=== PATIENT | male | born 1965 | race African-American/Black ===

== ENCOUNTER 2024-02-23 10:14 | Emergency (ER) | payer MEDICARE ==
--- NOTE | 2024-02-23 10:41 | ED ---
Upper Extremity HPI - General Chief Complaint: Extremity Injury, Upper Stated Complaint: Left arm pain,fall Time Seen by Provider: 02/23/24 10:40 Source: patient, RN notes reviewed Mode of arrival: ambulatory Limitations: no limitations - History of Present Illness Initial Comments: This is a 58-year-old male who presents to the emergency department for a fall. Patient tripped and fell yesterday, landing on his left side. He has since had pain to the left shoulder and upper arm. Denies hitting his head. Not taking any blood thinners. MD Complaint: Injury to:: left, shoulder - Related Data Previous Rx's Medication Instructions Recorded HYDROcodone/APAP 7.5-325MG [[place] 1 tab PO Q6HR PRN 3 Days #12 tab 02/23/24 7.5-325] Ketorolac [Toradol] 10 mg PO Q6HR PRN #15 tab 02/23/24 Lidocaine 5% Patch [Lidoderm 5% 1 patch TOPICAL DAILY PRN #30 patch 02/23/24 Patch] Allergies Allergy/AdvReac Type Severity Reaction Status Date / Time No Known Allergies Allergy Verified 02/23/24 10:38 Review of Systems ROS Statement: Those systems with pertinent positive or pertinent negative responses have been documented in the HPI. ROS Other: All systems not noted in ROS Statement are negative. Past Medical History Past Medical History: No Reported History History of Any Multi-Drug Resistant Organisms: None Reported Past Surgical History: No Surgical Hx Reported Past Psychological History: No Psychological Hx Reported Smoking Status: Current every day smoker Past Alcohol Use History: None Reported Past Drug Use History: None Reported General Exam Limitations: no limitations General appearance: alert, in no apparent distress Head exam: Present: atraumatic, normocephalic, normal inspection Respiratory exam: Present: normal lung sounds bilaterally. Absent: respiratory distress, wheezes, rales, rhonchi, stridor Cardiovascular Exam: Present: regular rate, normal rhythm, normal heart sounds. Absent: systolic murmur, diastolic murmur, rubs, gallop, clicks Extremities exam: Present: other (Tenderness and swelling over the left shoulder. Range of motion limited by pain. 2+ radial pulses.) Neurological exam: Present: alert, oriented X3, CN II-XII intact Psychiatric exam: Present: normal affect, normal mood Skin exam: Present: warm, dry, intact, normal color. Absent: rash Course Vital Signs 02/23/24 02/23/24 10:34 12:39 Temperature 98 F Pulse Rate 91 89 Respiratory 18 16 Rate Blood Pressure 155/113 143/84 O2 Sat by Pulse 98 97 Oximetry Medical Decision Making - Medical Decision Making This is a 58 year old male who presents to the emergency department for left shoulder pain after a fall. Was pt. sent in by a medical professional or institution? @ -No Did you speak to anyone other than the patient for history? @ -No Did you review nursing and triage notes? @ -Yes, and I agree, it is accurate with regards to the patient's symptoms. Were old charts reviewed? @ -No Differential Diagnosis? @ Differential Musculoskeletal: Muscular strain, contusion, ligament sprain, fracture, arthritis, septic arthritis, bursitis, cellulitis, muscle spasm, nerve compression, DVT, arterial occlusion, herpes zoster, electrolyte abnormality, tumor.... This is not meant to be in all inclusive list EKG interpreted by me (3pts min.)? @ -Not obtained X-rays interpreted by me (1pt min.)? @ -X-ray of the left shoulder and humerus obtained. My interpretation identifies a proximal humeral head fracture. CT interpreted by me (1pt min.)? @ -Not obtained U/S interpreted by me (1pt. min.)? @ -Not obtained What testing was considered but not performed? (CT, X-rays, U/S, labs)? Why? @ -None What meds were considered but not given? Why? @ -None Did you discuss the management of the patient with other professionals? @ -No Did you reconcile home meds? @ -No Was smoking cessation discussed for >3mins.? @ -No Was critical care preformed (if so, how long)? @ -No Were there social determinants of health that impacted care today? How? (Homelessness, low income, unemployed, alcoholism, drug addiction, zayas sportation, low edu. Level, literacy, decrease access to med. care, half-way, rehab)? @ -No Was there de-escalation of care discussed even if they declined? (Discuss DNR or withdrawal of care, Hospice)? @ -No What co-morbidities impacted this encounter? (DM, HTN, Smoking, COPD, CAD, Cancer, CVA, Hep., AIDS, mental health diagnosis, sleep apnea, morbid obesity)? @ -None Was patient admitted / discharged? @ -Discharged. X-ray of the left shoulder and humerus obtained demonstrating a proximal humeral head fracture and possible left-sided rib fractures. Pain medication administered and the patient was put in an arm sling. Patient is not local to this area, and I advised following up with orthopedics as soon as he gets home. Prescription for Toradol, [place], and lidocaine patches provided with dosing instructions reviewed. He is advised to take several deep breaths an hour despite the pain to reduce the risk of a secondary pneumonia. Patient discharged home in stable condition. Undiagnosed new problem with uncertain prognosis? @ -None Drug Therapy requiring intensive monitoring for toxicity (Heparin, Nitro, Insulin, Cardizem)? @ -None Were any procedures done? @ -None Diagnosis/symptom? @ -Fall, left proximal humerus fracture, left sided rib fractures Acute, or Chronic, or Acute on Chronic? @ -Acute Uncomplicated (without systemic symptoms) or Complicated (systemic symptoms)? @ -Uncomplicated Side effects of treatment? @ -None Exacerbation, Progression, or Severe Exacerbation] @ -Not applicable Poses a threat to life or bodily function? @ -This will limit his use of the left arm for the mean time. Return precautions reviewed in depth, the patient is instructed to return to the emergency department with any new, worsening, or concerning symptoms. Patient verbalized understanding. This case was discussed in detail with the attending ED physician, Dr. Peterson. Presentation, findings, and treatment plan discussed in detail as well. - Radiology Data Radiology results: report reviewed, image reviewed Disposition Clinical Impression: Fall, Fracture of humeral head, left, closed, Left rib fracture Disposition: HOME SELF-CARE Instructions (If sedation given, give patient instructions): Rib Fracture (ED), Proximal Humerus Fracture (ED) Additional Instructions: Return to the emergency department with any new, worsening, or concerning symptoms. Take the Toradol with Tylenol as needed for pain relief. If you choose to take the Toradol, do not take any other anti-inflammatories such as ibuprofen, take one or the other. Take the [place] sparingly when your pain is the most severe and be aware that it may make you drowsy. You can apply the lidocaine patches to the rib cage daily as well. Make sure you take several deep breaths an hour despite the pain to reduce the risk of developing a secondary pneumonia. Follow-up with orthopedics regarding the humeral head fracture. Prescriptions: Lidocaine 5% Patch [Lidoderm 5% Patch] 1 patch TOPICAL DAILY PRN #30 patch PRN Reason: Pain HYDROcodone/APAP 7.5-325MG [[place] 7.5-325] 1 tab PO Q6HR PRN 3 Days #12 tab PRN Reason: Pain Ketorolac [Toradol] 10 mg PO Q6HR PRN #15 tab PRN Reason: Pain Is patient prescribed a controlled substance at d/c from ED?: Yes When asked, does pt state using other controlled substances?: No If prescribed controlled substance>3 days was MAPS reviewed?: Prescribed <3 Days Referrals: [facility] [Primary Care Provider] - 1-2 days Time of Disposition: 12:19
[2024-02-23 11:13] VITALS: TEMP 98
--- NOTE | 2024-02-23 11:40 | XR ---
EXAMINATION TYPE: XR shoulder complete LT, XR humerus LT DATE OF EXAM: 02/23/2024 CLINICAL HISTORY: pain COMPARISON: NONE TECHNIQUE: Three views of the left shoulder are obtained. 2 views of the left humerus are also submi tted. FINDINGS: There is fracture noted involving the surgical neck of the left humerus with extension into the greater tuberosity. Displacement of 2 to 3 mm noted. Well-corticated ossific density along the m argin of the inferior glenoid. AC joint is intact. Distal acromial spurring. Deformity of several lef t-sided ribs including 4, 5 and 6. IMPRESSION: 1. Proximal left humeral fracture. 2. Possible left-sided rib fractures.
[2024-02-23] MEDS: LIDOCAINE 4% PATCH TOPICAL ONE (12:12)
[2024-02-23] MEDS: KETOROLAC 15 MG/ML 1 ML VIAL IM STA (12:13)
[2024-02-23] MEDS: HYDROmorphone 1 MG/ML 1 ML SYRINGE IM STA (12:13)
[2024-02-23 12:45] VITALS: BP 143/84; PULSE 89; RESP 16
== END 2024-02-23 12:40 | disposition home or self-care (01) ==
LOC: EC 10:14
DX: S22.32XA Fracture of one rib, left side, initial encounter for closed fracture (principal); S42.292A Other displaced fracture of upper end of left humerus, initial encounter for closed fracture; F17.200 Nicotine dependence, unspecified, uncomplicated; W01.0XXA Fall on same level from slipping, tripping and stumbling without subsequent striking against object, initial encounter
CPT/HCPCS: 73030; 73060; 99283; 96372 ×2; J1170; J1885